=== PATIENT | female | born 1985 | race Caucasian/White ===

== ENCOUNTER 2018-10-24 12:01 | Emergency (ER) | payer OTHER, MEDICAID ==
[2018-10-24] MEDS: AZITHROMYCIN 500 MG TAB PO (13:25)
[2018-10-24] MEDS: CEFTRIAXONE 250 MG INJ IM (13:25)
[2018-10-24 14:50] LABS: HEPATITIS B SURFACE ANTIGEN NEGATIVE (NEGATIVE)
[2018-10-24 15:00] LABS: HIV 1&2 ANTIBODY NEGATIVE (NEGATIVE)
[2018-10-25 09:28] LABS: ADD UMIC YES; UR ASCORBIC ACID NEGATIVE (NEGATIVE); UR BILIRUBIN (Dip) NEGATIVE (NEGATIVE); UR BLOOD (Dip) NEGATIVE (NEGATIVE); UR CLARITY SLIGHTLY CLOUDY (CLEAR); UR COLOR YELLOW (YELLOW); UR GLUCOSE (Dip) NEGATIVE (NEGATIVE); UR KETONES (Dip) NEGATIVE (NEGATIVE); UR LEUKOCYTE ESTERASE (Dip) 2+ Leu/ul (NEGATIVE); UR MUCUS FEW /HPF (NONE SEEN); UR NITRITE (Dip) NEGATIVE (NEGATIVE); UR RBC 5 /HPF (0-5); UR SPECIFIC GRAVITY (Dip) 1.013 (1.003-1.030); UR SQUAMOUS EPITHELIAL CELL FEW /HPF (FEW); UR TOTAL PROTEIN (Dip) NEGATIVE (NEGATIVE); UR UROBILINOGEN (Dip) NEGATIVE (NEGATIVE); UR WBC 15 /HPF (0-5)
== END 2018-10-24 15:50 | disposition home or self-care (01) ==
LOC: FTE 12:01
DX: A60.09 Herpesviral infection of other urogenital tract (principal)
CPT/HCPCS: 81001; 84703; 86703; 86780; 87081; 87210; 87340; 87591; 96372; 99284-25